=== PATIENT | male | born 1985 | race Two or more races ===

== ENCOUNTER 2018-12-13 23:13 | Emergency (ER) | payer BC, MEDICAID ==
[~2018-12-13] VITALS: Ht 182.9 cm; Wt 140.6 kg
[2018-12-13 23:29] VITALS: BP 127/72
== END 2018-12-14 00:11 | disposition home or self-care (01) ==
LOC: ER 23:21
DX: J06.9 Acute upper respiratory infection, unspecified (principal); F17.200 Nicotine dependence, unspecified, uncomplicated
CPT/HCPCS: Z7502